=== PATIENT | male | born 1960 | race African-American/Black ===

== ENCOUNTER 2017-07-06 08:01 | Outpatient (CLI) | payer MEDICARE ==
[2017-07-06] MEDS ORDERED: Gadobenate Dimeglumine 529 MG/1 ML (20ML VIAL) ONE (16:30)
== END 2017-07-06 08:02 | disposition home or self-care (01) ==
LOC: BICMRI 08:01
PROVIDERS: ATTEND Psychiatry & Neurology Neurology
DX: G35 Multiple sclerosis (principal); R90.82 White matter disease, unspecified
CPT/HCPCS: 70553; A9579

== ENCOUNTER 2021-01-10 16:20 | Emergency (ER) | payer MEDICARE, SELFPAY | END 2021-01-10 20:54 | disposition home or self-care (01) | LOC: ERS 16:20 | DX: M79.604 Pain in right leg (principal); G35 Multiple sclerosis; Z79.899 Other long term (current) drug therapy; Z79.82 Long term (current) use of aspirin; Z79.84 Long term (current) use of oral hypoglycemic drugs; I25.10 Atherosclerotic heart disease of native coronary artery without angina pectoris; I10 Essential (primary) hypertension | CPT/HCPCS: 93005 ==

== ENCOUNTER 2021-01-26 16:32 | Emergency (ER) | payer MEDICARE ==
[2021-01-26] MEDS ORDERED: Morphine 4 MG/ML VIAL ONE (18:51)
[2021-01-26] MEDS ORDERED: Ondansetron PF 4 MG/2 ML Vial ONE (18:51)
[2021-01-26] MEDS ORDERED: Enoxaparin Sodium 100 MG/ML SYRINGE ONE (19:49)
[2021-01-26 20:20] LABS: #Eosinphils 0.3 thou/uL (0.0-0.7); #Lymphocytes 1.8 thou/uL (1.20-3.40); #Monocytes 1.2 thou/uL (0.11-0.59); #Neutrophils 9.9 thou/uL (1.40-6.50); %Basophils 0.1 % (0.0-1.0); %Eosinophils 2.5 % (0.0-10.0); %Lymphocytes 13.5 % (21.0-51.0); %Monocytes 9.1 % (0.0-10.0); %Neutrophils 74.8 % (42.0-75.0); Mean Corpuscular HGB CONC 34.4 g/dL (32.0-36.0); Mean Corpuscular Hemoglobin 25.9 pg (27.0-31.0); Mean Corpuscular Volume 75.2 fL (78.0-98.0); Mean Platelet Volume 9.8 fL (7.4-10.4); Platelet Count 213 thou/uL (130-400); RBC Distribution Width 14.8 % (11.5-14.5); Red Blood Cell (RBC) Count 5.01 mill/uL (4.70-6.10); White Blood Cell (WBC) Count 13.2 thou/uL (4.8-10.8)
[2021-01-26 20:36] LABS: INR-International Normal Ratio 1.2; PTT 36.8 sec (22.9-36.1); Prothrombin Time 15.1 sec (12.0-14.7)
[2021-01-26 20:43] LABS: ALT (SGPT) 9 U/L (8-55); AST (SGOT) 14 U/L (5-34); Albumin 4.3 g/dL (3.4-4.8); Alkaline Phosphatase 53 U/L (40-110); Anion Gap 18 mmol/L (10-20); BUN (Urea Nitrogen) 10 mg/dL (8.4-25.7); Bilirubin, Total 0.6 mg/dL (0.2-1.2); Calc. Creatinine Clearance 0 mL/min (70-130); Calcium 9.6 mg/dL (7.8-10.44); Carbon Dioxide 18 mmol/L (23-31); Chloride 105 mmol/L (98-107); Globulin 3.7 g/dL (2.4-3.5); Glucose 75 mg/dL (80-115); Potassium 4.3 mmol/L (3.5-5.1); Sodium 137 mmol/L (136-145)
== END 2021-01-27 00:50 | disposition short-term general hospital (02) ==
LOC: ERS 16:32
DX: I82.412 Acute embolism and thrombosis of left femoral vein (principal); I82.432 Acute embolism and thrombosis of left popliteal vein; I82.442 Acute embolism and thrombosis of left tibial vein; I82.812 Embolism and thrombosis of superficial veins of left lower extremity; I25.10 Atherosclerotic heart disease of native coronary artery without angina pectoris; I10 Essential (primary) hypertension; R73.03 Prediabetes; Z79.82 Long term (current) use of aspirin; Z79.899 Other long term (current) drug therapy; Z79.84 Long term (current) use of oral hypoglycemic drugs
CPT/HCPCS: 36415; 71045; 80053; 83880; 84484; 85025; 85610; 85730; 93005; 96372; 96374; 96375; J1650; J2270; J2405

== ENCOUNTER 2021-02-12 08:45 | Outpatient (CLI) | payer MEDICARE | END 2021-02-12 08:46 | disposition home or self-care (01) | LOC: PET 08:45 | PROVIDERS: ATTEND Family Medicine | DX: R91.8 Other nonspecific abnormal finding of lung field (principal); R59.0 Localized enlarged lymph nodes; F34.1 Dysthymic disorder; K57.30 Diverticulosis of large intestine without perforation or abscess without bleeding; R91.1 Solitary pulmonary nodule | CPT/HCPCS: 78815; A9552 ==

== ENCOUNTER 2021-02-17 11:18 | Outpatient (CLI) | payer MEDICARE ==
[2021-02-18 11:57] LABS: SARS-CoV-2 PCR by NAA Not Detected (NotDetected)
== END 2021-02-17 11:19 | disposition home or self-care (01) ==
LOC: LABBT 11:18
PROVIDERS: ATTEND Internal Medicine
DX: Z01.812 Encounter for preprocedural laboratory examination (principal); Z20.822 Contact with and (suspected) exposure to COVID-19
CPT/HCPCS: U0003; U0005

== ENCOUNTER 2021-02-19 07:07 | Day surgery (SDC) | payer MEDICARE ==
[2021-02-18 09:47] VITALS: BMI 32.3
[2021-02-19] MEDS ORDERED: Midazolam HCl 2 mg/2 ml Vial ONE (08:47)
[2021-02-19] MEDS ORDERED: Fentanyl 100 MCG/2 ML VIAL ONE (08:47)
[2021-02-19] MEDS ORDERED: SUGAMMADEX SODIUM 200 MG/2 ML VIAL ONE (09:06)
[2021-02-19] MEDS ORDERED: Rocuronium Bromide 10 MG/ML (10ML VIAL) ONE (09:56)
[2021-02-19] MEDS ORDERED: PROPOFOL 200 MG/20 ML VIAL ONE (09:56)
[2021-02-19] MEDS ORDERED: Lidocaine 1% PF 5 ML VIAL ONE (09:56)
[2021-02-19] MEDS ORDERED: Ondansetron PF 4 MG/2 ML Vial ONE (09:56)
[2021-02-19] MEDS ORDERED: HYDROmorphone 2 MG/ML VIAL ONE (10:07)
== END 2021-02-19 14:16 | disposition home or self-care (01) ==
LOC: SDC 07:07
PROVIDERS: ATTEND Internal Medicine
PROC: 07D78ZX Extraction of Thorax Lymphatic, Via Natural or Artificial Opening Endoscopic, Diagnostic (ICD-10-PCS; principal; 2021-02-19)
DX: C96.9 Malignant neoplasm of lymphoid, hematopoietic and related tissue, unspecified (principal); R91.1 Solitary pulmonary nodule; G47.33 Obstructive sleep apnea (adult) (pediatric); E78.5 Hyperlipidemia, unspecified; K21.9 Gastro-esophageal reflux disease without esophagitis; G35 Multiple sclerosis; G89.29 Other chronic pain; M54.9 Dorsalgia, unspecified; M19.90 Unspecified osteoarthritis, unspecified site; E78.00 Pure hypercholesterolemia, unspecified; E11.9 Type 2 diabetes mellitus without complications; I11.9 Hypertensive heart disease without heart failure; Z86.711 Personal history of pulmonary embolism; Z87.891 Personal history of nicotine dependence; Z79.01 Long term (current) use of anticoagulants; Z79.82 Long term (current) use of aspirin; Z79.84 Long term (current) use of oral hypoglycemic drugs; Z79.899 Other long term (current) drug therapy; Z95.5 Presence of coronary angioplasty implant and graft
CPT/HCPCS: 88112; 88173; 88305; 88341; 88342; J1170; J2250; J2405; J2704; J3010

== ENCOUNTER 2021-03-10 08:53 | Outpatient (CLI) | payer MEDICARE | END 2021-03-10 08:54 | disposition home or self-care (01) | LOC: SCSMRI 08:53 | PROVIDERS: ATTEND Internal Medicine Hematology & Oncology | DX: C34.11 Malignant neoplasm of upper lobe, right bronchus or lung (principal); I67.82 Cerebral ischemia; R90.89 Other abnormal findings on diagnostic imaging of central nervous system | CPT/HCPCS: 70553 ==

== ENCOUNTER → 2021-04-07 | Day surgery (SDC) | payer MEDICARE | LOC: SPEC 12:24 | PROVIDERS: ATTEND Internal Medicine Hematology & Oncology | DX: T82.598A Other mechanical complication of other cardiac and vascular devices and implants, initial encounter (principal); C34.11 Malignant neoplasm of upper lobe, right bronchus or lung; D50.0 Iron deficiency anemia secondary to blood loss (chronic); E78.2 Mixed hyperlipidemia | CPT/HCPCS: 36005; 36415; 77001; 80053; 82248; 83615; 84100; 84436; 84443; 84550 ==

== ENCOUNTER 2021-05-31 07:38 | Emergency (ER) | payer MEDICARE ==
[2021-05-31 09:06] LABS: Bacteria/HPF None Seen HPF (None Seen); Bilirubin Negative (Negative); Blood, Urine 3+ (Negative); Clarity Clear (Clear); Glucose, Urine (Dipstick) Normal (Negative); Ketone, Urine Negative (Negative); Leukocyte Negative Leu/uL (Negative); Nitrite Negative (Negative); Protein, Urine (Dipstick) Negative (Neg-Trace); Specific Gravity, Urine 1.008 (1.002-1.036); Squamous Epithelial None Seen HPF (0-3); Urobilinogen Normal mg/dL (Less than 2); pH, Urine 5.5 (5.0-9.0)
[2021-05-31 09:12] LABS: ALT (SGPT) 34 U/L (8-55); AST (SGOT) 28 U/L (5-34); Albumin 4.4 g/dL (3.4-4.8); Alkaline Phosphatase 79 U/L (40-110); Anion Gap 17 mmol/L (10-20); BUN (Urea Nitrogen) 14 mg/dL (8.4-25.7); Bilirubin, Total 0.5 mg/dL (0.2-1.2); Calc. Creatinine Clearance 0 mL/min (70-130); Calcium 10.2 mg/dL (7.8-10.44); Carbon Dioxide 19 mmol/L (23-31); Chloride 100 mmol/L (98-107); Globulin 4.2 g/dL (2.4-3.5); Glucose 142 mg/dL (80-115); Potassium 4.3 mmol/L (3.5-5.1); Protein, Total 8.6 g/dL (5.8-8.1); Sodium 132 mmol/L (136-145)
[2021-05-31 09:21] LABS: INR-International Normal Ratio 1.1; Prothrombin Time 14.4 sec (12.0-14.7)
[2021-05-31 09:22] LABS: PTT 33.4 sec (22.9-36.1)
[2021-05-31 09:56] LABS: Anisocytosis MODERATE=16-30 cells (100X) (0-5/hpf); Band 4 % (5-11); Eosinophils 1 % (0-10); Hemoglobin 14.5 g/dL (14.0-18.0); Lymphocytes 20 % (21-51); MDiff Complete? YES; Mean Corpuscular HGB CONC 33.6 g/dL (32.0-36.0); Mean Corpuscular Hemoglobin 27.4 pg (27.0-31.0); Mean Corpuscular Volume 81.6 fL (78.0-98.0); Mean Platelet Volume 6.3 fL (7.4-10.4); Monocytes 12 % (0-10); Neutrophil 60 % (42-75); Ovalocytes SLIGHT = 2-5 cells (100X) (0-1/hpf); Platelet Count 121 thou/uL (130-400); Platelet Morphology Comment Appears Decreased; Poikilocytosis MODERATE=16-30 cells (100X) (0-5/hpf); Polychromasia SLIGHT = 2-3 cells (100X) (0-2/hpf); RBC Distribution Width 20.5 % (11.5-14.5); Reactive Lymphocytes 3 % (0-10); Red Blood Cell (RBC) Count 5.29 mill/uL (4.70-6.10); Reflex for Review?? YES; Target Cells SLIGHT = 2-5 cells (100X) (0-1/hpf); Tear Drops MODERATE= 6-15 cells (100X) (0-1/hpf); White Blood Cell (WBC) Count 5.6 thou/uL (4.8-10.8)
[2021-05-31 10:13] LABS: WBC/HPF 0-3 HPF (0-3)
== END 2021-05-31 10:36 | disposition home or self-care (01) ==
LOC: ERS 07:38
DX: N28.89 Other specified disorders of kidney and ureter (principal); R31.9 Hematuria, unspecified; I10 Essential (primary) hypertension; Z79.899 Other long term (current) drug therapy
CPT/HCPCS: 36415; 74177; 80053; 81003; 81015; 83605; 85025; 85060; 85610; 85730; 87040; 87086; J1642

== ENCOUNTER 2021-06-01 09:30 | Outpatient (CLI) | payer MEDICARE | END 2021-06-01 09:31 | disposition home or self-care (01) | LOC: PET 09:30 | PROVIDERS: ATTEND Internal Medicine Hematology & Oncology | DX: C34.11 Malignant neoplasm of upper lobe, right bronchus or lung (principal) | CPT/HCPCS: 78815; A9552 ==

== ENCOUNTER 2021-07-27 12:31 | Outpatient (CLI) | payer MEDICARE ==
[~2021-07-27 12:31] MED LIST: Iopamidol-370 76% 500 ML 1 ML ONE
== END 2021-07-27 12:32 | disposition home or self-care (01) ==
LOC: BICCT 12:31
PROVIDERS: ATTEND Internal Medicine Hematology & Oncology
DX: C34.11 Malignant neoplasm of upper lobe, right bronchus or lung (principal); R59.1 Generalized enlarged lymph nodes
CPT/HCPCS: 70491; 71260; Q9967

== ENCOUNTER 2021-08-05 11:45 | Outpatient (CLI) | payer MEDICARE | END 2021-08-05 11:46 | disposition home or self-care (01) | LOC: PET 11:45 | PROVIDERS: ATTEND Internal Medicine Hematology & Oncology | DX: C34.11 Malignant neoplasm of upper lobe, right bronchus or lung (principal); C77.0 Secondary and unspecified malignant neoplasm of lymph nodes of head, face and neck; C77.1 Secondary and unspecified malignant neoplasm of intrathoracic lymph nodes; D50.0 Iron deficiency anemia secondary to blood loss (chronic) | CPT/HCPCS: 78815; A9552 ==

== ENCOUNTER 2021-10-25 09:30 | Outpatient (CLI) | payer MEDICARE | END 2021-10-25 09:31 | disposition home or self-care (01) | LOC: PET 09:30 | PROVIDERS: ATTEND Internal Medicine Hematology & Oncology | DX: C34.11 Malignant neoplasm of upper lobe, right bronchus or lung (principal); R59.0 Localized enlarged lymph nodes | CPT/HCPCS: 78815; A9552 ==

== ENCOUNTER 2022-01-20 08:45 | Outpatient (CLI) | payer MEDICARE | END 2022-01-20 08:46 | disposition home or self-care (01) | LOC: PET 08:45 | PROVIDERS: ATTEND Internal Medicine Hematology & Oncology | DX: C34.11 Malignant neoplasm of upper lobe, right bronchus or lung (principal); D50.0 Iron deficiency anemia secondary to blood loss (chronic); R59.0 Localized enlarged lymph nodes | CPT/HCPCS: 78815; 80053; 80061; A9552; 36415 ==

== ENCOUNTER 2022-01-28 15:49 | Outpatient (CLI) | payer MEDICARE | END 2022-01-28 15:50 | disposition home or self-care (01) | LOC: BICULT 15:49 | PROVIDERS: ATTEND Family Medicine | DX: R60.0 Localized edema (principal) | CPT/HCPCS: 93970 ==

== ENCOUNTER 2022-01-28 18:33 | Inpatient (IN) | payer MEDICARE ==
[2022-01-28 19:12] LABS: Hemoglobin 10.3 g/dL (14.0-18.0); Mean Corpuscular HGB CONC 31.2 g/dL (32.0-36.0); Mean Corpuscular Hemoglobin 25.1 pg (27.0-31.0); Mean Corpuscular Volume 80.3 fl (78.0-98.0); Mean Platelet Volume 6.7 fL (7.4-10.4); Platelet Count 180 thou/uL (130-400); RBC Distribution Width 21.9 % (11.5-14.5); White Blood Cell (WBC) Count 7.4 thou/uL (4.8-10.8)
[2022-01-28 19:24] LABS: INR-International Normal Ratio 1.3; PTT 29.5 sec (22.9-36.1); Prothrombin Time 16.3 sec (12.0-14.7)
[2022-01-28] MEDS ORDERED: Ondansetron ODT 4 MG TAB SL PRN (19:30)
[2022-01-28] MEDS ORDERED: Ondansetron PF 4 MG/2 ML Vial IVP PRN (19:30)
[2022-01-28 19:31] LABS: ALT (SGPT) 37 U/L (8-55); AST (SGOT) 43 U/L (5-34); Albumin 4.4 g/dL (3.4-4.8); Alkaline Phosphatase 103 U/L (40-110); Anion Gap 12 mmol/L (10-20); BUN (Urea Nitrogen) 6 mg/dL (8.4-25.7); Bilirubin, Total 0.7 mg/dL (0.2-1.2); Calc. Creatinine Clearance 0 mL/min (70-130); Calcium 8.9 mg/dL (7.8-10.44); Carbon Dioxide 27 mmol/L (23-31); Chloride 104 mmol/L (98-107); Estimated GFR 101; Globulin 3.7 g/dL (2.4-3.5); Glucose 101 mg/dL (80-115); Potassium 3.5 mmol/L (3.5-5.1); Protein, Total 8.1 g/dL (5.8-8.1); Sodium 139 mmol/L (136-145)
[2022-01-28 19:43] LABS: Band 6 % (5-11); Hypochromia SLIGHT = 6-15 cells (100X) (0-5/hpf); Large Platelets SLIGHT; Lymphocytes 22 % (21-51); MDiff Complete? YES; Monocytes 3 % (0-10); Neutrophil 67 % (42-75); Platelet Morphology Comment Appears Adequate; Reactive Lymphocytes 2 % (0-10)
[2022-01-28] MEDS ORDERED: Ondansetron ODT 4 MG TAB PO PRN (19:53)
[2022-01-28] MEDS ORDERED: Acetaminophen 325 MG TAB PO PRN (19:53)
[2022-01-28] MEDS ORDERED: Senokot S 8.6-50 MG TAB PO PRN (19:53)
[2022-01-28] MEDS ORDERED: Dextrose 5% in Water 1,000 ML IV PRN (19:57)
[2022-01-28] MEDS ORDERED: HumaLOG 300 UNITS/3 ML VIAL SC PRN (19:57)
[2022-01-28] MEDS ORDERED: Dextrose 50% Abboject 50 ML SYRINGE SLOW IVP PRN (19:57)
[2022-01-28] MEDS ORDERED: Atorvastatin Calcium 40 MG TAB PO SCH (21:00)
[2022-01-28] MEDS ORDERED: Tamsulosin HCl 0.4 MG CAP PO SCH (21:00)
[2022-01-28] MEDS: Icosapent Ethyl 1 GM CAPSULE PO SCH (23:48)
[2022-01-29 05:41] LABS: #Lymphocytes 1.3 thou/uL (1.20-3.40); #Monocytes 0.9 thou/uL (0.11-0.59); #Neutrophils 4.4 thou/uL (1.40-6.50); %Basophils 0.1 % (0.0-1.0); %Eosinophils 0.7 % (0.0-10.0); %Lymphocytes 19.1 % (21.0-51.0); %Monocytes 14.1 % (0.0-10.0); %Neutrophils 66.1 % (42.0-75.0); Hemoglobin 9.4 g/dL (14.0-18.0); Mean Corpuscular HGB CONC 31.2 g/dL (32.0-36.0); Mean Platelet Volume 6.7 fL (7.4-10.4); Platelet Count 162 thou/uL (130-400); Red Blood Cell (RBC) Count 3.78 mill/uL (4.70-6.10); White Blood Cell (WBC) Count 6.7 thou/uL (4.8-10.8)
[2022-01-29 06:01] LABS: ALT (SGPT) 30 U/L (8-55); AST (SGOT) 41 U/L (5-34); Alkaline Phosphatase 91 U/L (40-110); Anion Gap 14 mmol/L (10-20); BUN (Urea Nitrogen) 7 mg/dL (8.4-25.7); Bilirubin, Total 0.6 mg/dL (0.2-1.2); Calc. Creatinine Clearance 134 mL/min (70-130); Calcium 8.8 mg/dL (7.8-10.44); Carbon Dioxide 22 mmol/L (23-31); Chloride 105 mmol/L (98-107); Estimated GFR 102; Globulin 3.4 g/dL (2.4-3.5); Glucose 118 mg/dL (80-115); Potassium 3.7 mmol/L (3.5-5.1); Protein, Total 7.4 g/dL (5.8-8.1); Sodium 137 mmol/L (136-145)
[2022-01-29 07:37] VITALS: BP 109/75; TEMP 97.6
[2022-01-29] MEDS ORDERED: Aspirin 81 mg Enteric Coated Tablet PO SCH (09:00)
[2022-01-29] MEDS ORDERED: Heparin 10,000 UNITS/ 10 ML VIAL ONE (09:16)
[2022-01-29] MEDS ORDERED: Lidocaine 1% (PF) 30 ML VIAL ONE (09:17)
[2022-01-29] MEDS: Icosapent Ethyl 1 GM CAPSULE PO SCH (09:37)
[2022-01-29] MEDS ORDERED: Iopamidol 370 76% 50 ML VIAL FS ONE (10:28)
[2022-01-30] MEDS ORDERED: Apixaban 5 MG TAB PO SCH (09:00)
[2022-01-31] MEDS ORDERED: FLU VACC QS2022-23(6MOS UP)/PF 60 MCG/0.5 ML SYRINGE IM ONE (09:00)
== END 2022-01-29 14:42 | disposition home or self-care (01) | DRG 300 ==
LOC: ERS 18:33 → MSONC 19:16
PROVIDERS: ADMIT Student in an Organized Health Care Education/Training Program; ATTEND Student in an Organized Health Care Education/Training Program
PROC: 06H03DZ Insertion of Intraluminal Device into Inferior Vena Cava, Percutaneous Approach (ICD-10-PCS; principal; 2022-01-29)
DX: I82.432 Acute embolism and thrombosis of left popliteal vein (principal); C34.91 Malignant neoplasm of unspecified part of right bronchus or lung; I82.412 Acute embolism and thrombosis of left femoral vein; E78.00 Pure hypercholesterolemia, unspecified; I25.10 Atherosclerotic heart disease of native coronary artery without angina pectoris; E11.9 Type 2 diabetes mellitus without complications; I10 Essential (primary) hypertension; Z90.49 Acquired absence of other specified parts of digestive tract; Z98.890 Other specified postprocedural states; Z95.5 Presence of coronary angioplasty implant and graft; Z79.84 Long term (current) use of oral hypoglycemic drugs; Z79.01 Long term (current) use of anticoagulants; Z79.82 Long term (current) use of aspirin; Z79.899 Other long term (current) drug therapy; Z87.891 Personal history of nicotine dependence; Z86.711 Personal history of pulmonary embolism; Z20.822 Contact with and (suspected) exposure to COVID-19; R60.0 Localized edema
CPT/HCPCS: 36415; 36416; 37191; 80053; 85025; 85610; 85730; 93970; 99285; C1769; C1880; J1644; J2001; Q9967; U0003; U0005

== ENCOUNTER 2022-03-21 17:39 | Observation (INO) | payer MEDICARE ==
[2022-03-21 18:14] LABS: #Lymphocytes 1.7 thou/uL (1.20-3.40); #Monocytes 1.1 thou/uL (0.11-0.59); #Neutrophils 5.1 thou/uL (1.40-6.50); %Basophils 0.1 % (0.0-1.0); %Eosinophils 0.4 % (0.0-10.0); %Neutrophils 64.5 % (42.0-75.0); Hemoglobin 12.5 g/dL (14.0-18.0); Mean Corpuscular HGB CONC 32.7 g/dL (32.0-36.0); Mean Corpuscular Volume 76.4 fl (78.0-98.0); Mean Platelet Volume 7.2 fL (7.4-10.4); Platelet Count 245 10x3/uL (130-400); RBC Distribution Width 22.8 % (11.5-14.5); Red Blood Cell (RBC) Count 5.02 mill/uL (4.70-6.10); White Blood Cell (WBC) Count 7.9 10x3/uL (4.8-10.8)
[2022-03-21 18:59] LABS: ALT (SGPT) 26 U/L (8-55); AST (SGOT) 32 U/L (5-34); Alkaline Phosphatase 87 U/L (40-110); Anion Gap 16 mmol/L (10-20); BUN (Urea Nitrogen) 7 mg/dL (8.4-25.7); Bilirubin, Total 0.6 mg/dL (0.2-1.2); Calc. Creatinine Clearance 0 mL/min (70-130); Calcium 8.9 mg/dL (7.8-10.44); Carbon Dioxide 22 mmol/L (23-31); Chloride 102 mmol/L (98-107); Estimated GFR 99; Glucose 91 mg/dL (80-115); Sodium 136 mmol/L (136-145)
[2022-03-21] MEDS ORDERED: Dextrose 5% in Water 1,000 ML IV PRN (23:18)
[2022-03-21] MEDS ORDERED: HumaLOG 300 UNITS/3 ML VIAL SC PRN ×2 (23:18)
[2022-03-21] MEDS ORDERED: Dextrose 50% Abboject 50 ML SYRINGE SLOW IVP PRN (23:18)
[2022-03-21] MEDS ORDERED: Acetaminophen 325 MG TAB PO PRN (23:18)
[2022-03-21] MEDS ORDERED: hydrALAZINE 20 MG/ML VIAL SLOW IVP PRN (23:21)
[2022-03-21] MEDS ORDERED: Morphine 4 MG/ML VIAL SLOW IVP PRN (23:45)
[2022-03-22 00:25] VITALS: BMI 30.2
[2022-03-22] MEDS ORDERED: Benzonatate 100 MG CAP PO PRN (00:38)
[2022-03-22] MEDS: Cefepime 1 GM in Sodium Chloride 0.9% 100 ML IVPB SCH ×2 (00:59→11:39)
[2022-03-22] MEDS: HYDROcodone/Acetaminophen 5/325 mg Tablet PO PRN ×3 (01:12→13:34)
[2022-03-22] MEDS: Guaifenesin DM 100-10/5 ML UDCUP PO PRN ×3 (02:07→13:28)
[2022-03-22 06:02] LABS: Hemoglobin 11.5 g/dL (14.0-18.0); Mean Corpuscular HGB CONC 32.3 g/dL (32.0-36.0); Mean Corpuscular Hemoglobin 24.6 pg (27.0-31.0); Mean Corpuscular Volume 76.2 fl (78.0-98.0); Mean Platelet Volume 7.1 fL (7.4-10.4); Platelet Count 233 10x3/uL (130-400); RBC Distribution Width 22.6 % (11.5-14.5); Red Blood Cell (RBC) Count 4.66 mill/uL (4.70-6.10); White Blood Cell (WBC) Count 7.1 10x3/uL (4.8-10.8)
[2022-03-22 06:20] LABS: ALT (SGPT) 24 U/L (8-55); AST (SGOT) 28 U/L (5-34); Albumin 3.7 g/dL (3.4-4.8); Alkaline Phosphatase 81 U/L (40-110); Anion Gap 13 mmol/L (10-20); BUN (Urea Nitrogen) 7 mg/dL (8.4-25.7); Bilirubin, Total 0.8 mg/dL (0.2-1.2); Calc. Creatinine Clearance 126 mL/min (70-130); Calcium 8.8 mg/dL (7.8-10.44); Carbon Dioxide 21 mmol/L (23-31); Cardiac Risk 4.5 (Less than 4.5); Chloride 102 mmol/L (98-107); Cholesterol 81 mg/dl (< 200 Desired); Estimated GFR 103; Glucose 85 mg/dL (80-115); HDL Cholesterol 18 mg/dL (>60 Neg Risk); LDL Cholesterol, Calculated 44 mg/dL; Potassium 3.7 mmol/L (3.5-5.1); Protein, Total 7.7 g/dL (5.8-8.1); Sodium 132 mmol/L (136-145); Triglycerides 97 mg/dL (Less than 150)
[2022-03-22 07:04] LABS: Anisocytosis SLIGHT = 6-15 cells (100X) (0-5/hpf); Band 1 % (5-11); Lymphocytes 34 % (21-51); MDiff Complete? YES; Monocytes 11 % (0-10); Neutrophil 54 % (42-75)
[2022-03-22] MEDS ORDERED: metFORMIN 500 MG TAB PO SCH (08:00)
[2022-03-22] MEDS ORDERED: Zinc Sulfate 220 MG CAP PO SCH (09:00)
[2022-03-22] MEDS ORDERED: Pregabalin 75 MG CAP PO SCH (09:00)
[2022-03-22] MEDS ORDERED: Dabigatran 150 mg Capsule PO SCH (09:00)
[2022-03-22] MEDS ORDERED: Aspirin 81 mg Enteric Coated Tablet PO SCH ×2 (09:00)
[2022-03-22] MEDS ORDERED: Tamsulosin HCl 0.4 MG CAP PO SCH (09:00)
[2022-03-22] MEDS ORDERED: Icosapent Ethyl 1 GM CAPSULE PO SCH (09:00)
[2022-03-22 11:32] VITALS: TEMP 98.6
[2022-03-22 16:52] VITALS: BP 121/75
[2022-03-22] MEDS ORDERED: levETIRAcetam 500 MG TAB PO SCH (21:00)
[2022-03-22] MEDS ORDERED: Atorvastatin Calcium 40 MG TAB PO SCH (21:00)
== END 2022-03-22 17:26 | disposition home or self-care (01) ==
LOC: ERS 17:39 → NEURO 22:38
PROVIDERS: ADMIT Internal Medicine; ATTEND Internal Medicine
DX: C34.11 Malignant neoplasm of upper lobe, right bronchus or lung (principal); C79.51 Secondary malignant neoplasm of bone; I63.9 Cerebral infarction, unspecified; G45.9 Transient cerebral ischemic attack, unspecified; I10 Essential (primary) hypertension; E78.00 Pure hypercholesterolemia, unspecified; I25.10 Atherosclerotic heart disease of native coronary artery without angina pectoris; E11.40 Type 2 diabetes mellitus with diabetic neuropathy, unspecified; Z86.718 Personal history of other venous thrombosis and embolism; Z86.711 Personal history of pulmonary embolism; Z79.01 Long term (current) use of anticoagulants; Z79.82 Long term (current) use of aspirin; Z79.84 Long term (current) use of oral hypoglycemic drugs; Z79.899 Other long term (current) drug therapy; Z90.49 Acquired absence of other specified parts of digestive tract; Z98.890 Other specified postprocedural states
CPT/HCPCS: 70450; 70551; 71046; 80053 ×2; 80061; 82962; 84484; 85025 ×2; 93005; 95712; 95819; 95957; 97116; 99285; G0378 ×2; U0003; U0005; 36415; 36416; J0692; J3490

== ENCOUNTER 2022-03-29 11:42 | Inpatient (IN) | payer MEDICARE ==
[2022-03-29] MEDS ORDERED: Ondansetron PF 4 MG/2 ML Vial ONE (12:33)
[2022-03-29 13:07] LABS: #Eosinphils 0.1 thou/uL (0.0-0.7); #Lymphocytes 1.3 thou/uL (1.20-3.40); %Basophils 0.2 % (0.0-1.0); %Lymphocytes 17.6 % (21.0-51.0); %Monocytes 13.2 % (0.0-10.0); %Neutrophils 68.1 % (42.0-75.0); Hemoglobin 12.6 g/dL (14.0-18.0); Mean Corpuscular HGB CONC 32.3 g/dL (32.0-36.0); Mean Corpuscular Hemoglobin 24.4 pg (27.0-31.0); Mean Corpuscular Volume 75.6 fl (78.0-98.0); Platelet Count 278 10x3/uL (130-400); RBC Distribution Width 22.9 % (11.5-14.5); Red Blood Cell (RBC) Count 5.14 mill/uL (4.70-6.10); White Blood Cell (WBC) Count 7.4 10x3/uL (4.8-10.8)
[2022-03-29 13:29] LABS: Anisocytosis SLIGHT = 6-15 cells (100X) (0-5/hpf); Hypochromia SLIGHT = 6-15 cells (100X) (0-5/hpf); MDiff Complete? YES; Mean Platelet Volume 6.4 fL (7.4-10.4); Microcytosis SLIGHT = 6-15 cells (100X) (0-5/hpf); Ovalocytes SLIGHT = 2-5 cells (100X) (0-1/hpf); Platelet Morphology Comment Appears Adequate; Polychromasia SLIGHT = 2-3 cells (100X) (0-2/hpf); Target Cells SLIGHT = 2-5 cells (100X) (0-1/hpf); Tear Drops SLIGHT = 2-5 cells (100X) (0-1/hpf)
[2022-03-29 13:30] LABS: ALT (SGPT) 23 U/L (8-55); AST (SGOT) 35 U/L (5-34); Albumin 4.2 g/dL (3.4-4.8); Alkaline Phosphatase 104 U/L (40-110); Anion Gap 18 mmol/L (10-20); BUN (Urea Nitrogen) 13 mg/dL (8.4-25.7); Bilirubin, Total 0.7 mg/dL (0.2-1.2); Calc. Creatinine Clearance 0 mL/min (70-130); Calcium 9.8 mg/dL (7.8-10.44); Carbon Dioxide 23 mmol/L (23-31); Chloride 100 mmol/L (98-107); Estimated GFR 100; Globulin 4.6 g/dL (2.4-3.5); Glucose 90 mg/dL (80-115); Potassium 3.8 mmol/L (3.5-5.1); Protein, Total 8.8 g/dL (5.8-8.1); Sodium 137 mmol/L (136-145)
[2022-03-29] MEDS ORDERED: Lidocaine Viscous Sol 2% 15 ml UD Cup ONE (16:25)
[2022-03-29] MEDS ORDERED: Mag-Al 1200 mg/1200 mg/30 ML UDCUP ONE (16:25)
[2022-03-29] MEDS ORDERED: Piperacillin/Tazobactam 4.5 GM VIAL ONE (17:20)
[2022-03-29 17:51] LABS: Magnesium 1.4 mg/dL (1.6-2.6)
[2022-03-29] MEDS ORDERED: Ondansetron ODT 4 MG TAB PO PRN (19:11)
[2022-03-29] MEDS ORDERED: Dextrose 50% Abboject 50 ML SYRINGE SLOW IVP PRN (19:11)
[2022-03-29] MEDS ORDERED: Dextrose 5% in Water 1,000 ML IV PRN (19:11)
[2022-03-29] MEDS ORDERED: HumaLOG 300 UNITS/3 ML VIAL SC PRN (19:11)
[2022-03-29] MEDS ORDERED: Magnesium 2 GM/50 ML(in water) 2 GM in Premix Bag 1 BAG IVPB SCH (19:45)
[2022-03-29] MEDS ORDERED: Benzonatate 100 MG CAP PO PRN (23:48)
[2022-03-29] MEDS ORDERED: GUAIFENESIN SF SOLN 200 MG/10 ML UDCUP PO PRN (23:48)
[2022-03-29] MEDS ORDERED: Dextromethorphan Polistirex 30 MG/5 ML (89 ML BOTTLE) PO PRN (23:48)
[2022-03-29] MEDS ORDERED: Acetaminophen 325 MG TAB ONE (23:54)
[2022-03-29] MEDS ORDERED: Benzonatate 100 MG CAP ONE (23:54)
[2022-03-30] MEDS: Acetaminophen 325 MG TAB PO PRN ×2 (00:02→08:31)
[2022-03-30 00:33] VITALS: BMI 26.5
[2022-03-30 03:44] LABS: SARS-CoV-2 NAA Rapid Test Not Detected (NotDetected)
[2022-03-30 07:38] LABS: #Eosinphils 0.1 thou/uL (0.0-0.7); #Lymphocytes 1.3 thou/uL (1.20-3.40); #Monocytes 0.9 thou/uL (0.11-0.59); #Neutrophils 4.6 thou/uL (1.40-6.50); %Basophils 0.4 % (0.0-1.0); %Eosinophils 1.8 % (0.0-10.0); %Monocytes 13.2 % (0.0-10.0); %Neutrophils 65.7 % (42.0-75.0); Hemoglobin 11.9 g/dL (14.0-18.0); Mean Corpuscular HGB CONC 32.2 g/dL (32.0-36.0); Mean Corpuscular Hemoglobin 24.2 pg (27.0-31.0); Mean Platelet Volume 6.9 fL (7.4-10.4); Platelet Count 273 10x3/uL (130-400); RBC Distribution Width 22.4 % (11.5-14.5); Red Blood Cell (RBC) Count 4.93 mill/uL (4.70-6.10)
[2022-03-30 07:55] LABS: Anion Gap 15 mmol/L (10-20); BUN (Urea Nitrogen) 9 mg/dL (8.4-25.7); Calc. Creatinine Clearance 118 mL/min (70-130); Calcium 9.1 mg/dL (7.8-10.44); Carbon Dioxide 21 mmol/L (23-31); Chloride 105 mmol/L (98-107); Estimated GFR 101; Glucose 75 mg/dL (80-115); Potassium 3.8 mmol/L (3.5-5.1); Sodium 137 mmol/L (136-145)
[2022-03-30] MEDS ORDERED: Acetaminophen 325 MG TAB ONE (08:18)
[2022-03-30 08:20] LABS: Hypochromia SLIGHT = 6-15 cells (100X) (0-5/hpf); MDiff Complete? YES; Microcytosis SLIGHT = 6-15 cells (100X) (0-5/hpf); Platelet Morphology Comment Appears Adequate; Polychromasia SLIGHT = 2-3 cells (100X) (0-2/hpf)
[2022-03-30] MEDS: levETIRAcetam 500 MG TAB PO SCH ×2 (09:24→20:15)
[2022-03-30] MEDS: Dabigatran 150 mg Capsule PO SCH ×2 (09:24→20:15)
[2022-03-30] MEDS ORDERED: Ipratropium/Albuterol 3 ML NEB ONE (09:30)
[2022-03-30] MEDS: Ipratropium/Albuterol 3 ML NEB NEB PRN (09:32)
[2022-03-30 10:22] LABS: Magnesium 1.6 mg/dL (1.6-2.6)
[2022-03-30] MEDS: Sodium Chloride 0.9% 1,000 ML IV SCH (11:50)
[2022-03-30] MEDS ORDERED: Iopamidol-370 76% 500 ML 1 ML ONE (13:40)
[2022-03-30] MEDS ORDERED: HYDROcodone/Acetaminophen 5/325 mg Tablet ONE (16:52)
[2022-03-30] MEDS: HYDROcodone/Acetaminophen 5/325 mg Tablet PO PRN (16:56)
[2022-03-31] MEDS: HYDROcodone/Acetaminophen 5/325 mg Tablet PO PRN ×2 (02:24→21:30)
[2022-03-31] MEDS: Sodium Chloride 0.9% 1,000 ML IV SCH (05:14)
[2022-03-31] MEDS: Dabigatran 150 mg Capsule PO SCH ×2 (08:27→21:12)
[2022-03-31] MEDS: levETIRAcetam 500 MG TAB PO SCH ×2 (08:27→21:11)
[2022-03-31] MEDS ORDERED: Cepastat Lozenges 1 LOZ PO PRN (09:38)
[2022-03-31] MEDS ORDERED: Magnevist 469MG/ML 20 ML VIAL ONE ×2 (11:47)
[2022-03-31] MEDS: Dronabinol 2.5 MG CAP PO SCH (19:11)
[2022-03-31] MEDS: Atorvastatin Calcium 40 MG TAB PO SCH (21:05)
[2022-03-31] MEDS: Tamsulosin HCl 0.4 MG CAP PO SCH (21:12)
[2022-04-01 05:50] LABS: Anion Gap 14 mmol/L (10-20); BUN (Urea Nitrogen) 6 mg/dL (8.4-25.7); Calc. Creatinine Clearance 130 mL/min (70-130); Calcium 9.4 mg/dL (7.8-10.44); Carbon Dioxide 25 mmol/L (23-31); Chloride 102 mmol/L (98-107); Estimated GFR 104; Glucose 78 mg/dL (80-115); Magnesium 1.4 mg/dL (1.6-2.6); Potassium 3.6 mmol/L (3.5-5.1); Sodium 137 mmol/L (136-145)
[2022-04-01] MEDS: HYDROcodone/Acetaminophen 5/325 mg Tablet PO PRN ×2 (07:45→12:57)
[2022-04-01] MEDS: Tamsulosin HCl 0.4 MG CAP PO SCH ×2 (08:33→22:15)
[2022-04-01] MEDS: Aspirin 81 mg Enteric Coated Tablet PO SCH (08:33)
[2022-04-01] MEDS: levETIRAcetam 500 MG TAB PO SCH (08:33)
[2022-04-01] MEDS: Dabigatran 150 mg Capsule PO SCH ×2 (08:33→22:15)
[2022-04-01] MEDS: Dronabinol 2.5 MG CAP PO SCH ×2 (08:33→22:14)
[2022-04-01] MEDS ORDERED: Lorazepam 2 MG/ML VIAL SLOW IVP SCH (15:00)
[2022-04-01] MEDS: Dextrose 5%-Lactated Ringers 1,000 ML IV SCH (20:40)
[2022-04-01] MEDS: levETIRAcetam 500 MG/5 ML VIAL SLOW IVP SCH (20:41)
[2022-04-01] MEDS ORDERED: levETIRAcetam in NS 500 MG in Premix Bag 1 BAG IVPB SCH (21:00)
[2022-04-01] MEDS: Atorvastatin Calcium 40 MG TAB PO SCH (22:14)
[2022-04-02 02:01] LABS: Actual Bicarbonate (HCO3a) 24.9 mEq/L (22-28); Base Excess (BEa) 0.7 mEq/L (-2.0 to +3.0); CO2 Tension 38.4 mmHg (35.0-45.0); Carboxyhemoglobin (COHb) 0.8 gm% (0.0-3.0); Hemoglobin (Hb) 12.9 g/dL (14.0-18.0); O2 Tension (PaO2), arterial 65.6 mmHg (> 80.0); Potassium - ABG Lab 3.71 mmol/L (3.70-5.30); pH, Arterial 7.43 (7.35-7.45)
[2022-04-02 02:04] LABS: Puncture Site RBA
[2022-04-02] MEDS: Dronabinol 2.5 MG CAP PO SCH ×2 (07:42→16:37)
[2022-04-02] MEDS: levETIRAcetam 500 MG/5 ML VIAL SLOW IVP SCH ×2 (08:23→20:29)
[2022-04-02] MEDS: Dextrose 5%-Lactated Ringers 1,000 ML IV SCH ×2 (08:28→20:28)
[2022-04-02] MEDS: Dabigatran 150 mg Capsule PO SCH ×2 (09:44→20:17)
[2022-04-02] MEDS: Tamsulosin HCl 0.4 MG CAP PO SCH ×2 (09:44→20:17)
[2022-04-02] MEDS: Aspirin 81 mg Enteric Coated Tablet PO SCH (09:44)
[2022-04-02] MEDS ORDERED: Methocarbamol 1 GM/10 ML VIAL IM PRN (13:23)
[2022-04-02] MEDS: Morphine 4 MG/ML VIAL SLOW IVP SCH ×3 (13:33→20:29)
[2022-04-02] MEDS: Atorvastatin Calcium 40 MG TAB PO SCH (20:17)
[2022-04-03] MEDS: Morphine 4 MG/ML VIAL SLOW IVP SCH ×6 (00:14→21:06)
[2022-04-03] MEDS ORDERED: Lorazepam 2 MG/ML VIAL SLOW IVP SCH (03:45)
[2022-04-03 03:59] LABS: Lactic Acid 3.7 mmol/L (0.5-2.2)
[2022-04-03 04:00] LABS: #Eosinphils 0.1 thou/uL (0.0-0.7); #Lymphocytes 1.5 thou/uL (1.20-3.40); #Neutrophils 4.2 thou/uL (1.40-6.50); %Basophils 0.4 % (0.0-1.0); %Lymphocytes 22.2 % (21.0-51.0); %Monocytes 14.9 % (0.0-10.0); %Neutrophils 60.5 % (42.0-75.0); Hemoglobin 12.7 g/dL (14.0-18.0); Mean Corpuscular HGB CONC 32.6 g/dL (32.0-36.0); Mean Corpuscular Hemoglobin 24.6 pg (27.0-31.0); Mean Corpuscular Volume 75.5 fl (78.0-98.0); Mean Platelet Volume 6.3 fL (7.4-10.4); Platelet Count 268 10x3/uL (130-400); RBC Distribution Width 22.4 % (11.5-14.5); Red Blood Cell (RBC) Count 5.14 mill/uL (4.70-6.10)
[2022-04-03 04:05] LABS: ALT (SGPT) 23 U/L (8-55); AST (SGOT) 34 U/L (5-34); Albumin 3.8 g/dL (3.4-4.8); Alkaline Phosphatase 116 U/L (40-110); Anion Gap 17 mmol/L (10-20); BUN (Urea Nitrogen) 7 mg/dL (8.4-25.7); Bilirubin, Total 0.7 mg/dL (0.2-1.2); Calc. Creatinine Clearance 120 mL/min (70-130); Calcium 9.7 mg/dL (7.8-10.44); Carbon Dioxide 21 mmol/L (23-31); Chloride 103 mmol/L (98-107); Estimated GFR 102; Globulin 4.5 g/dL (2.4-3.5); Glucose 99 mg/dL (80-115); Potassium 3.3 mmol/L (3.5-5.1); Protein, Total 8.3 g/dL (5.8-8.1); Sodium 138 mmol/L (136-145)
[2022-04-03] MEDS ORDERED: Lactated Ringer's 500 ML IV SCH ×2 (05:15→05:45)
[2022-04-03] MEDS ORDERED: Electrolyte Replacement Protocol 1 EACH FS SCH (05:15)
[2022-04-03] MEDS ORDERED: Potassium Chloride 20 MEQ in Lactated Ringer's 1,000 ML IV SCH (05:45)
[2022-04-03] MEDS ORDERED: Morphine 4 MG/ML VIAL SLOW IVP SCH (06:00)
[2022-04-03 06:49] LABS: Magnesium 1.2 mg/dL (1.6-2.6)
[2022-04-03] MEDS ORDERED: Magnesium Sulfate In Water 4 GM in Premix Bag 1 BAG IVPB SCH (08:00)
[2022-04-03] MEDS: Ondansetron PF 4 MG/2 ML Vial IVP PRN (08:09)
[2022-04-03] MEDS: Dronabinol 2.5 MG CAP PO SCH ×2 (09:25→17:19)
[2022-04-03] MEDS: Dexamethasone 4 MG TAB PO SCH (09:25)
[2022-04-03] MEDS: Aspirin 81 mg Enteric Coated Tablet PO SCH (09:26)
[2022-04-03] MEDS: Tamsulosin HCl 0.4 MG CAP PO SCH ×2 (09:26→21:09)
[2022-04-03] MEDS: Dabigatran 150 mg Capsule PO SCH ×2 (09:27→21:08)
[2022-04-03 09:39] LABS: Lactic Acid 0.7 mmol/L (0.5-2.2)
[2022-04-03] MEDS: Potassium Chloride 20 MEQ in Premix Bag 1 BAG IVPB SCH ×2 (10:26→12:44)
[2022-04-03] MEDS: levETIRAcetam 500 MG/5 ML VIAL SLOW IVP SCH (10:27)
[2022-04-03] MEDS: Dextrose 5%-Lactated Ringers 1,000 ML IV SCH (12:46)
[2022-04-03] MEDS: Multivitamins, Adult 10 ML, TRACE ELEMENT CONCENTRATE 1 ML in D15W-AA 5% with Lytes 2,0... IV SCH (14:51)
[2022-04-03] MEDS ORDERED: Artificial Tear Sol 15 ML BOT L EYE PRN (16:59)
[2022-04-03 19:14] LABS: Actual Bicarbonate (HCO3v) 24 mEq/L (22-28); Analyzer IN Cardio ER; Base Excess -0.8 mEq/L (-2.0 to +3.0); Calcium, Ionized (venous) 1.11 mmol/L (1.16-1.32); Chloride (VBG) 101 mmol/L (98-106); Hemoglobin (Hb) 12.9 g/dL (13.1-17.2); Potassium (VBG) 3.52 mmol/L (3.70-5.30); Sodium 135.9 mmol/L (133-146)
[2022-04-03] MEDS ORDERED: levETIRAcetam 500 MG/5 ML VIAL SLOW IVP SCH (19:30)
[2022-04-03] MEDS: Atorvastatin Calcium 40 MG TAB PO SCH (21:08)
[2022-04-03] MEDS: QUEtiapine 25 MG TAB PO SCH (21:09)
[2022-04-04] MEDS: Dextrose 5%-Lactated Ringers 1,000 ML IV SCH (00:37)
[2022-04-04] MEDS: Morphine 4 MG/ML VIAL SLOW IVP SCH ×6 (00:38→23:13)
[2022-04-04 05:16] LABS: ALT (SGPT) 18 U/L (8-55); AST (SGOT) 33 U/L (5-34); Albumin 3.8 g/dL (3.4-4.8); Alkaline Phosphatase 103 U/L (40-110); Anion Gap 12 mmol/L (10-20); BUN (Urea Nitrogen) 8 mg/dL (8.4-25.7); Bilirubin, Total 0.6 mg/dL (0.2-1.2); Calc. Creatinine Clearance 136 mL/min (70-130); Calcium 9.4 mg/dL (7.8-10.44); Carbon Dioxide 29 mmol/L (23-31); Chloride 99 mmol/L (98-107); Estimated GFR 106; Globulin 4.3 g/dL (2.4-3.5); Glucose 108 mg/dL (80-115); Phosphorus 3.7 mg/dL (2.3-4.7); Potassium 3.7 mmol/L (3.5-5.1); Protein, Total 8.1 g/dL (5.8-8.1); Sodium 136 mmol/L (136-145)
[2022-04-04 05:34] LABS: #Basophils 0.1 thou/uL (0.0-0.2); #Eosinphils 0.1 thou/uL (0.0-0.7); #Lymphocytes 0.9 thou/uL (1.20-3.40); #Monocytes 0.8 thou/uL (0.11-0.59); #Neutrophils 5.2 thou/uL (1.40-6.50); %Basophils 0.8 % (0.0-1.0); %Eosinophils 1.4 % (0.0-10.0); %Lymphocytes 12.9 % (21.0-51.0); %Monocytes 11.5 % (0.0-10.0); %Neutrophils 73.4 % (42.0-75.0); Hemoglobin 11.9 g/dL (14.0-18.0); Mean Corpuscular HGB CONC 32.7 g/dL (32.0-36.0); Mean Corpuscular Hemoglobin 24.7 pg (27.0-31.0); Mean Corpuscular Volume 75.5 fl (78.0-98.0); Mean Platelet Volume 6.5 fL (7.4-10.4); Platelet Count 232 10x3/uL (130-400); RBC Distribution Width 22.4 % (11.5-14.5); Red Blood Cell (RBC) Count 4.82 mill/uL (4.70-6.10); White Blood Cell (WBC) Count 7.1 10x3/uL (4.8-10.8)
[2022-04-04] MEDS: Dronabinol 2.5 MG CAP PO SCH ×2 (07:33→16:21)
[2022-04-04] MEDS: Dexamethasone 4 MG TAB PO SCH (07:34)
[2022-04-04] MEDS ORDERED: Magnesium 2 GM/50 ML(in water) 2 GM in Premix Bag 1 BAG IVPB SCH (08:00)
[2022-04-04] MEDS: Aspirin 81 mg Enteric Coated Tablet PO SCH (09:50)
[2022-04-04] MEDS: Dabigatran 150 mg Capsule PO SCH ×2 (09:50→22:16)
[2022-04-04] MEDS: levETIRAcetam 500 MG/5 ML VIAL SLOW IVP SCH ×2 (09:51→23:14)
[2022-04-04] MEDS: Tamsulosin HCl 0.4 MG CAP PO SCH ×2 (09:56→22:17)
[2022-04-04] MEDS: QUEtiapine 25 MG TAB PO SCH ×2 (09:56→22:17)
[2022-04-04] MEDS ORDERED: hydrALAZINE 20 MG/ML VIAL SLOW IVP PRN (10:32)
[2022-04-04] MEDS ORDERED: Piperacillin/Tazobactam 3.375 GM in Sodium Chloride 0.9% 100 ML IVPB SCH ×2 (11:00→12:00)
[2022-04-04] MEDS ORDERED: Dexamethasone 4 mg/ml Vial SLOW IVP SCH (12:30)
[2022-04-04] MEDS: Multivitamins, Adult 10 ML, TRACE ELEMENT CONCENTRATE 1 ML, Fat Emulsion 500 ML in D15W... IV SCH (15:41)
[2022-04-04] MEDS: Piperacillin/Tazobactam 3.375 GM in Sodium Chloride 0.9% 100 ML IVPB SCH ×2 (18:13→22:41)
[2022-04-04] MEDS: Dexamethasone 4 mg/ml Vial SLOW IVP SCH ×2 (18:24→22:36)
[2022-04-04] MEDS: Ondansetron PF 4 MG/2 ML Vial IVP PRN (22:12)
[2022-04-04] MEDS: Atorvastatin Calcium 40 MG TAB PO SCH (22:16)
[2022-04-05] MEDS: Metoprolol Tartrate 5 MG/5 ML VIAL IVP SCH ×5 (00:23→23:48)
[2022-04-05] MEDS: Morphine 4 MG/ML VIAL SLOW IVP SCH ×6 (00:24→20:07)
[2022-04-05] MEDS: Piperacillin/Tazobactam 3.375 GM in Sodium Chloride 0.9% 100 ML IVPB SCH ×3 (06:26→23:48)
[2022-04-05] MEDS: Dexamethasone 4 mg/ml Vial SLOW IVP SCH ×4 (06:27→23:48)
[2022-04-05] MEDS: Aspirin 81 mg Enteric Coated Tablet PO SCH (08:50)
[2022-04-05] MEDS: levETIRAcetam 500 MG/5 ML VIAL SLOW IVP SCH ×2 (08:50→20:09)
[2022-04-05] MEDS: Dabigatran 150 mg Capsule PO SCH ×2 (08:50→20:09)
[2022-04-05] MEDS: QUEtiapine 25 MG TAB PO SCH ×2 (08:50→20:09)
[2022-04-05] MEDS: Tamsulosin HCl 0.4 MG CAP PO SCH ×2 (08:50→20:09)
[2022-04-05] MEDS: Dronabinol 2.5 MG CAP PO SCH ×2 (08:50→15:28)
[2022-04-05 12:14] LABS: Bacteria/HPF None Seen HPF (None Seen); Bilirubin Negative (Negative); Blood, Urine Negative (Negative); CAUTI Indications for Culture Alt mental st,lethar; Clarity Clear (Clear); Glucose, Urine (Dipstick) Normal (Negative); Ketone, Urine 10 mg/dL (Negative); Leukocyte Negative Leu/uL (Negative); Nitrite Negative (Negative); Protein, Urine (Dipstick) 200 mg/dL (Neg-Trace); RBC/HPF 0-3 HPF (0-3); Specific Gravity, Urine 1.026 (1.002-1.036); Squamous Epithelial 0-3 HPF (0-3); Urobilinogen Normal mg/dL (Less than 2)
[2022-04-05 12:18] LABS: Urine Culture Reflex No No
[2022-04-05] MEDS: Multivitamins, Adult 10 ML, TRACE ELEMENT CONCENTRATE 1 ML in D15W-AA 5% with Lytes 2,0... IV SCH (15:27)
[2022-04-05] MEDS: Atorvastatin Calcium 40 MG TAB PO SCH (20:09)
[2022-04-06] MEDS: Morphine 4 MG/ML VIAL SLOW IVP SCH ×6 (00:02→21:04)
[2022-04-06] MEDS ORDERED: diphenhydrAMINE 50 MG/ML VIAL IVP PRN (00:41)
[2022-04-06] MEDS: Dexamethasone 4 mg/ml Vial SLOW IVP SCH ×4 (05:19→23:07)
[2022-04-06] MEDS: Metoprolol Tartrate 5 MG/5 ML VIAL IVP SCH ×3 (05:20→18:19)
[2022-04-06 06:25] LABS: #Lymphocytes 0.9 thou/uL (1.20-3.40); #Monocytes 0.4 thou/uL (0.11-0.59); #Neutrophils 9.9 thou/uL (1.40-6.50); %Basophils 0.1 % (0.0-1.0); %Eosinophils 0.1 % (0.0-10.0); %Lymphocytes 8.2 % (21.0-51.0); %Monocytes 3.6 % (0.0-10.0); Hemoglobin 12.7 g/dL (14.0-18.0); Mean Corpuscular HGB CONC 32.1 g/dL (32.0-36.0); Mean Corpuscular Hemoglobin 24.2 pg (27.0-31.0); Mean Corpuscular Volume 75.5 fl (78.0-98.0); Mean Platelet Volume 7.3 fL (7.4-10.4); Platelet Count 255 10x3/uL (130-400); RBC Distribution Width 22.8 % (11.5-14.5); Red Blood Cell (RBC) Count 5.24 mill/uL (4.70-6.10); White Blood Cell (WBC) Count 11.3 10x3/uL (4.8-10.8)
[2022-04-06 06:30] LABS: Anion Gap 14 mmol/L (10-20); BUN (Urea Nitrogen) 20 mg/dL (8.4-25.7); Calc. Creatinine Clearance 117 mL/min (70-130); Calcium 9.7 mg/dL (7.8-10.44); Carbon Dioxide 23 mmol/L (23-31); Chloride 101 mmol/L (98-107); Estimated GFR 101; Glucose 191 mg/dL (80-115); Potassium 4.1 mmol/L (3.5-5.1); Sodium 134 mmol/L (136-145)
[2022-04-06] MEDS: Aspirin 81 mg Enteric Coated Tablet PO SCH (09:34)
[2022-04-06] MEDS: Dronabinol 2.5 MG CAP PO SCH ×2 (09:34→15:55)
[2022-04-06] MEDS: Piperacillin/Tazobactam 3.375 GM in Sodium Chloride 0.9% 100 ML IVPB SCH ×3 (09:34→23:00)
[2022-04-06] MEDS: Dabigatran 150 mg Capsule PO SCH ×2 (09:35→21:05)
[2022-04-06] MEDS: Tamsulosin HCl 0.4 MG CAP PO SCH ×2 (09:35→21:06)
[2022-04-06] MEDS: levETIRAcetam 500 MG/5 ML VIAL SLOW IVP SCH ×2 (09:35→21:06)
[2022-04-06] MEDS: QUEtiapine 25 MG TAB PO SCH ×2 (09:35→22:59)
[2022-04-06] MEDS: Scopolamine 1.5 mg/72 hour Patch TD SCH (12:45)
[2022-04-06] MEDS: Multivitamins, Adult 10 ML, TRACE ELEMENT CONCENTRATE 1 ML, Fat Emulsion 500 ML in D15W... IV SCH (15:54)
[2022-04-06] MEDS ORDERED: Acetaminophen 650 MG Suppository PR PRN (18:12)
[2022-04-06] MEDS: Atorvastatin Calcium 40 MG TAB PO SCH (21:06)
[2022-04-06] MEDS ORDERED: Piperacillin/Tazobactam 3.375 GM VIAL ONE (22:49)
[2022-04-07] MEDS: Morphine 4 MG/ML VIAL SLOW IVP SCH ×6 (01:13→21:27)
[2022-04-07] MEDS: Ipratropium/Albuterol 3 ML NEB NEB PRN ×3 (01:17→19:59)
[2022-04-07] MEDS: Dexamethasone 4 mg/ml Vial SLOW IVP SCH ×4 (05:33→23:11)
[2022-04-07 05:45] LABS: Anion Gap 15 mmol/L (10-20); BUN (Urea Nitrogen) 25 mg/dL (8.4-25.7); Calc. Creatinine Clearance 115 mL/min (70-130); Calcium 9.7 mg/dL (7.8-10.44); Carbon Dioxide 23 mmol/L (23-31); Chloride 101 mmol/L (98-107); Estimated GFR 100; Glucose 165 mg/dL (80-115); Sodium 135 mmol/L (136-145)
[2022-04-07 06:10] LABS: Anisocytosis SLIGHT = 6-15 cells (100X) (0-5/hpf); Band 1 % (5-11); Lymphocytes 6 % (21-51); MDiff Complete? YES; Mean Corpuscular HGB CONC 32.5 g/dL (32.0-36.0); Mean Corpuscular Hemoglobin 24.3 pg (27.0-31.0); Mean Corpuscular Volume 74.9 fl (78.0-98.0); Mean Platelet Volume 7.9 fL (7.4-10.4); Microcytosis SLIGHT = 6-15 cells (100X) (0-5/hpf); Monocytes 5 % (0-10); Neutrophil 88 % (42-75); Platelet Count 262 10x3/uL (130-400); RBC Distribution Width 23.6 % (11.5-14.5); Red Blood Cell (RBC) Count 5.36 mill/uL (4.70-6.10); White Blood Cell (WBC) Count 19.4 10x3/uL (4.8-10.8)
[2022-04-07] MEDS: Piperacillin/Tazobactam 3.375 GM in Sodium Chloride 0.9% 100 ML IVPB SCH ×3 (07:37→23:12)
[2022-04-07] MEDS: Dronabinol 2.5 MG CAP PO SCH ×2 (07:41→18:10)
[2022-04-07] MEDS: Metoprolol Tartrate 5 MG/5 ML VIAL IVP SCH ×5 (07:41→23:36)
[2022-04-07] MEDS: Dabigatran 150 mg Capsule PO SCH ×2 (09:39→21:27)
[2022-04-07] MEDS: Aspirin 81 mg Enteric Coated Tablet PO SCH (09:39)
[2022-04-07] MEDS: QUEtiapine 25 MG TAB PO SCH ×2 (09:41→21:27)
[2022-04-07] MEDS: levETIRAcetam 500 MG/5 ML VIAL SLOW IVP SCH ×2 (09:42→21:27)
[2022-04-07] MEDS: Tamsulosin HCl 0.4 MG CAP PO SCH ×2 (09:46→21:27)
[2022-04-07] MEDS ORDERED: Metoprolol Tartrate 5 MG/5 ML VIAL IVP SCH (14:30)
[2022-04-07] MEDS: Multivitamins, Adult 10 ML, TRACE ELEMENT CONCENTRATE 1 ML in D15W-AA 5% with Lytes 2,0... IV SCH (14:36)
[2022-04-07] MEDS: Atorvastatin Calcium 40 MG TAB PO SCH (21:26)
[2022-04-08] MEDS: levETIRAcetam 500 MG/5 ML VIAL SLOW IVP SCH ×3 (00:25→20:37)
[2022-04-08] MEDS: Morphine 4 MG/ML VIAL SLOW IVP SCH ×7 (00:53→23:59)
[2022-04-08] MEDS: Dexamethasone 4 mg/ml Vial SLOW IVP SCH ×3 (05:13→18:06)
[2022-04-08] MEDS: Metoprolol Tartrate 5 MG/5 ML VIAL IVP SCH ×3 (05:24→18:06)
[2022-04-08 08:52] LABS: ALT (SGPT) 16 U/L (8-55); AST (SGOT) 29 U/L (5-34); Albumin 3.8 g/dL (3.4-4.8); Alkaline Phosphatase 129 U/L (40-110); Anion Gap 14 mmol/L (10-20); BUN (Urea Nitrogen) 19 mg/dL (8.4-25.7); Bilirubin, Total 0.6 mg/dL (0.2-1.2); Calc. Creatinine Clearance 126 mL/min (70-130); Calcium 9.5 mg/dL (7.8-10.44); Carbon Dioxide 25 mmol/L (23-31); Chloride 101 mmol/L (98-107); Estimated GFR 103; Globulin 4.5 g/dL (2.4-3.5); Glucose 191 mg/dL (80-115); Magnesium 1.8 mg/dL (1.6-2.6); Phosphorus 2.4 mg/dL (2.3-4.7); Potassium 4.1 mmol/L (3.5-5.1); Protein, Total 8.3 g/dL (5.8-8.1); Sodium 136 mmol/L (136-145)
[2022-04-08] MEDS ORDERED: cloNIDine 0.1mg/24 Hour PATCH TD SCH (09:00)
[2022-04-08] MEDS: Aspirin 81 mg Enteric Coated Tablet PO SCH (09:23)
[2022-04-08] MEDS: Dronabinol 2.5 MG CAP PO SCH ×2 (09:23→16:10)
[2022-04-08] MEDS: Tamsulosin HCl 0.4 MG CAP PO SCH ×2 (09:23→23:50)
[2022-04-08] MEDS: QUEtiapine 25 MG TAB PO SCH ×2 (09:23→23:50)
[2022-04-08] MEDS: Dabigatran 150 mg Capsule PO SCH ×2 (09:23→23:50)
[2022-04-08] MEDS: Piperacillin/Tazobactam 3.375 GM in Sodium Chloride 0.9% 100 ML IVPB SCH ×3 (09:43→18:06)
[2022-04-08] MEDS ORDERED: Magnesium 2 GM/50 ML(in water) 2 GM in Premix Bag 1 BAG IVPB SCH (10:00)
[2022-04-08] MEDS: Multivitamins, Adult 10 ML, TRACE ELEMENT CONCENTRATE 1 ML, Fat Emulsion 500 ML in D15W... IV SCH (15:05)
[2022-04-08] MEDS: Atorvastatin Calcium 40 MG TAB PO SCH (23:50)
[2022-04-09] MEDS: Metoprolol Tartrate 5 MG/5 ML VIAL IVP SCH ×5 (00:14→22:44)
[2022-04-09] MEDS: Piperacillin/Tazobactam 3.375 GM in Sodium Chloride 0.9% 100 ML IVPB SCH ×3 (02:08→17:20)
[2022-04-09] MEDS: Morphine 4 MG/ML VIAL SLOW IVP SCH ×6 (05:56→23:56)
[2022-04-09] MEDS: Dexamethasone 4 mg/ml Vial SLOW IVP SCH ×5 (05:58→22:44)
[2022-04-09] MEDS: levETIRAcetam 500 MG/5 ML VIAL SLOW IVP SCH ×2 (08:39→20:52)
[2022-04-09] MEDS: Dronabinol 2.5 MG CAP PO SCH ×2 (08:39→17:31)
[2022-04-09] MEDS: Dabigatran 150 mg Capsule PO SCH ×2 (08:40→20:53)
[2022-04-09] MEDS: Tamsulosin HCl 0.4 MG CAP PO SCH ×2 (08:40→21:00)
[2022-04-09] MEDS: Aspirin 81 mg Enteric Coated Tablet PO SCH (08:40)
[2022-04-09] MEDS: QUEtiapine 25 MG TAB PO SCH ×2 (08:40→20:53)
[2022-04-09] MEDS: Scopolamine 1.5 mg/72 hour Patch TD SCH (11:50)
[2022-04-09] MEDS: Morphine 4 MG/ML VIAL SLOW IVP PRN (14:58)
[2022-04-09] MEDS: Lorazepam 2 MG/ML VIAL SLOW IVP PRN (15:00)
[2022-04-09] MEDS: Atorvastatin Calcium 40 MG TAB PO SCH (20:52)
[2022-04-10] MEDS ORDERED: Metoprolol Tartrate 5 MG/5 ML VIAL IVP PRN (00:31)
[2022-04-10] MEDS: Lorazepam 2 MG/ML VIAL SLOW IVP PRN ×14 (00:48→22:31)
[2022-04-10] MEDS: Piperacillin/Tazobactam 3.375 GM in Sodium Chloride 0.9% 100 ML IVPB SCH ×3 (03:06→18:36)
[2022-04-10] MEDS: Morphine 4 MG/ML VIAL SLOW IVP SCH ×5 (04:55→20:44)
[2022-04-10] MEDS: Metoprolol Tartrate 5 MG/5 ML VIAL IVP SCH ×3 (05:19→18:36)
[2022-04-10] MEDS: Dexamethasone 4 mg/ml Vial SLOW IVP SCH ×3 (05:19→18:36)
[2022-04-10] MEDS: Dronabinol 2.5 MG CAP PO SCH ×2 (07:54→16:13)
[2022-04-10] MEDS: QUEtiapine 25 MG TAB PO SCH ×2 (07:55→19:55)
[2022-04-10] MEDS: Aspirin 81 mg Enteric Coated Tablet PO SCH (07:55)
[2022-04-10] MEDS: Tamsulosin HCl 0.4 MG CAP PO SCH ×2 (07:55→19:56)
[2022-04-10] MEDS: Dabigatran 150 mg Capsule PO SCH ×2 (07:55→19:55)
[2022-04-10] MEDS: levETIRAcetam 500 MG/5 ML VIAL SLOW IVP SCH ×2 (09:09→19:55)
[2022-04-10] MEDS: Morphine 4 MG/ML VIAL SLOW IVP PRN ×9 (09:09→23:05)
[2022-04-10] MEDS: Atorvastatin Calcium 40 MG TAB PO SCH (19:55)
[2022-04-10 20:54] VITALS: BP 97/69; TEMP 97.4
[2022-04-11] MEDS: Metoprolol Tartrate 5 MG/5 ML VIAL IVP SCH (00:09)
[2022-04-11] MEDS: Dexamethasone 4 mg/ml Vial SLOW IVP SCH (00:09)
[2022-04-11] MEDS: Morphine 4 MG/ML VIAL SLOW IVP SCH (01:17)
[2022-04-11] MEDS: Piperacillin/Tazobactam 3.375 GM in Sodium Chloride 0.9% 100 ML IVPB SCH (01:18)
== END 2022-04-10 23:39 | disposition expired | DRG 177 ==
LOC: ERS 11:42 → ERHOLD 18:28 → MSONC 03-30 17:56 → OBSVTOIN 03-30 18:15 → IMCU/EMU 04-03 20:22 → CCU 04-09 23:31 → IMCU/EMU 04-10 12:15
PROVIDERS: ADMIT Family Medicine; ATTEND Internal Medicine
PROC: 3E0336Z Introduction of Nutritional Substance into Peripheral Vein, Percutaneous Approach (ICD-10-PCS; 2022-03-30)
PROC: 4A00X4Z Measurement of Central Nervous Electrical Activity, External Approach (ICD-10-PCS; principal; 2022-04-07)
DX: J69.0 Pneumonitis due to inhalation of food and vomit (principal); G93.41 Metabolic encephalopathy; J96.01 Acute respiratory failure with hypoxia; C34.90 Malignant neoplasm of unspecified part of unspecified bronchus or lung; C79.31 Secondary malignant neoplasm of brain; Z20.822 Contact with and (suspected) exposure to COVID-19; Z66 Do not resuscitate; Z51.5 Encounter for palliative care; E11.9 Type 2 diabetes mellitus without complications; I25.10 Atherosclerotic heart disease of native coronary artery without angina pectoris; E83.42 Hypomagnesemia; E78.00 Pure hypercholesterolemia, unspecified; F41.9 Anxiety disorder, unspecified; I65.21 Occlusion and stenosis of right carotid artery; Z86.73 Personal history of transient ischemic attack (TIA), and cerebral infarction without residual deficits; Z86.718 Personal history of other venous thrombosis and embolism; Z79.01 Long term (current) use of anticoagulants; Z79.51 Long term (current) use of inhaled steroids; Z79.899 Other long term (current) drug therapy; Z90.49 Acquired absence of other specified parts of digestive tract; Z95.5 Presence of coronary angioplasty implant and graft; Z98.890 Other specified postprocedural states; Z79.84 Long term (current) use of oral hypoglycemic drugs; Z79.82 Long term (current) use of aspirin; Z87.891 Personal history of nicotine dependence; Z88.8 Allergy status to other drugs, medicaments and biological substances
CPT/HCPCS: 36415; 36416; 36600; 70450; 70552; 71045; 71275; 72158; 80048; 80053; 81001; 82805; 83605; 83735; 83880; 84100; 84484; 85025; 87040; 87086; 87633; 87798; 87811; 93005; 94640; 95816; 95819; 95957; 96361; 96365; 96375; A9579; G0378; J0360; J1100; J1953; J2060; J2270; J2405; J2543; J3475; J3480; J3490; J7050; J7120; J7620; Q0162; Q0167; Q9967